=== PATIENT | female | born 1980 | race Caucasian/White ===

== ENCOUNTER → 2018-04-21 | Outpatient (CLI) | payer OTHER | LOC: M.RAD 04-08 10:38 → M.ULTRA 04-19 09:30 → M.RAD 04-19 10:00 → M.ULTRA 04-19 11:00 | DX: Z30.431 Encounter for routine checking of intrauterine contraceptive device (principal); N60.01 Solitary cyst of right breast; N28.1 Cyst of kidney, acquired; D25.9 Leiomyoma of uterus, unspecified; R92.8 Other abnormal and inconclusive findings on diagnostic imaging of breast ==